=== PATIENT | female | born 1990 | race Caucasian/White ===

== ENCOUNTER 2016-06-30 05:44 | Day surgery (SDC) | payer OTHER ==
[~2016-06-30] VITALS: Ht 160 cm; Wt 60.9 kg
[2016-06-30 06:34] VITALS: Ht 160 cm; Wt 60.9 kg
[2016-06-30] MEDS ORDERED: FIBER SUPPLEMENT (06:34)
[2016-06-30 07:06] VITALS: BP 128/70; PULSE 67; RESP 18
[2016-06-30] MEDS ORDERED: FENTAnyl 50 MCG/ML VIAL ONE (07:51)
[2016-06-30] MEDS ORDERED: MIDAZOLAM 1 MG/ML 2 ML INJ ONE ×2 (07:51)
[2016-06-30 08:31] VITALS: BP 99/56; PULSE 72; RESP 18
--- NOTE | 2016-06-30 11:58 | GILP ---
DATE OF PROCEDURE: 06/30/2016 NAME OF PROCEDURES: Esophagogastroduodenoscopy and biopsy. SURGEON: Donovan Mccord MD PREOPERATIVE DIAGNOSIS: Abdominal pain. POSTOPERATIVE DIAGNOSES: 1. Gastritis with erosions. 2. Gastric mucosal biopsies were taken for Helicobacter pylori test. INDICATION FOR THE PROCEDURE: Ms. Ana Soliman is a 25-year-old female patient who had upper ab dominal pain, not responding to therapy. Patient was scheduled for endoscopic examination for [facility] evaluation. The procedure and possible complications are well explained to the patient, she understood and conse nted to the procedure. DESCRIPTION OF PROCEDURE: Under the influence of fentanyl and Versed, the gastroscope was carefully introduced into the esophagus and under direct vision, it was advanced to the stomach and through t he pylorus into the duodenal bulb and descending duodenum. FINDINGS: ESOPHAGUS: The mucosa was normal. STOMACH: The patient had gastritis. Gastric mucosal biopsies were taken for H. pylori test. DUODENUM: Normal. She tolerated the procedure very well and there was no complication from the procedure. At the end of the procedure, she was awake with stable vital signs and she was discharged home to the care of [facility]. IMPRESSION: 1. Gastritis with erosions. 2. Gastric mucosal biopsies were taken for Helicobacter pylori test. PLAN: 1. Omeprazole 40 mg p.o. q.a.m. 2. Await H. pylori test report. Dictated By: DONOVAN MENDOZA/GENARO Conf#: [id number] DID#: [id number] CC: DONOVAN MCCORD MD;*EndCC*
== END 2016-06-30 11:32 | disposition home or self-care (01) ==
LOC: GIL 05:44
PROVIDERS: ATTEND Internal Medicine Gastroenterology
DX: K29.60 Other gastritis without bleeding (principal)
CPT/HCPCS: 43239; 84703; 87081; J2250; J3010; Z7610

== ENCOUNTER 2016-08-15 06:02 | Day surgery (SDC) | payer OTHER ==
[~2016-08-15] VITALS: Ht 162.6 cm; Wt 61.4 kg
[2016-08-15] VITALS (11 sets, daily range): BP systolic 110–156; BP diastolic 50–80; PULSE 66–103; RESP 16–23; Ht 162.6 cm; Wt 61.4 kg
[~2016-08-15 06:02] MED LIST: CEFAZOLIN 2 GM/50 ML (PMX) 50 ML IVPB SCH; FIBER SUPPLEMENT; SOD CHLORIDE 0.9% 1,000 ML IV SCH
[2016-08-15] MEDS ORDERED: BUPIVACAINE 0.25%/EPI (SDV) 30 ML INJ ONE (06:49)
[2016-08-15 07:06] LABS: ADD SCAN DIFF NO
[2016-08-15] MEDS ORDERED: OMEP40CA6 PO (07:14)
[2016-08-15 07:20] LABS: BASOPHILS % 0.3 % (0.0-2.0); EOSINOPHILS # 0.1 10^3/ul (0.0-0.5); EOSINOPHILS % 1.1 % (0.0-7.0); HEMATOCRIT 41.5 % (37.0-47.0); LYMPHOCYTES # 1.5 10^3/ul (0.8-2.9); LYMPHOCYTES % 20.9 % (15.0-51.0); MEAN CORPUSCULAR HEMOGLOBIN 34.3 pg (29.0-33.0); MEAN CORPUSCULAR HGB CONC 33.7 g/dl (32.0-37.0); MEAN CORPUSCULAR VOLUME 101.7 fl (82.0-101.0); MEAN PLATELET VOLUME 9.9 fl (7.4-10.4); MONOCYTE # 0.5 10^3/ul (0.3-0.9); MONOCYTES % 7.1 % (0.0-11.0); NEUTROPHIL # 4.9 10^3/ul (1.6-7.5); NEUTROPHILS % 70.5 % (39.0-77.0); PLATELET COUNT 232 10^3/UL (140-415); RED BLOOD COUNT 4.08 10^6/ul (4.20-5.40); RED CELL DISTRIBUTION WIDTH 12.7 % (11.5-14.5)
[2016-08-15 07:22] LABS: ALBUMIN 4.3 g/dl (3.3-4.9)
[2016-08-15 07:25] LABS: ALBUMIN/GLOBULIN RATIO 1.43; BILIRUBIN,INDIRECT 1.3 mg/dl (0-1.1); BILIRUBIN,TOTAL 1.3 mg/dl (0.2-1.3); TOTAL PROTEIN 7.3 g/dl (6.1-8.1)
[2016-08-15 07:26] LABS: CALCIUM 8.8 mg/dl (8.4-10.2); CREATININE 0.61 mg/dl (0.44-1.00); POTASSIUM 3.8 mmol/L (3.5-5.1)
[2016-08-15 07:27] LABS: INR 1.02; PROTIME 13.4 Sec (12.2-14.2)
[2016-08-15 07:28] LABS: PARTIAL THROMBOPLASTIN TIME 27.8 Sec (25.0-35.0)
[2016-08-15] MEDS ORDERED: MIDAZOLAM 1 MG/ML 2 ML INJ ONE (07:39)
[2016-08-15] MEDS ORDERED: PROPOFOL 20 ML ONE (07:39)
[2016-08-15] MEDS ORDERED: LIDOCAINE 1% (MDV) 20 ML INJ ONE (07:40)
[2016-08-15] MEDS ORDERED: ONDANSETRON 4 MG INJ ONE (07:48)
[2016-08-15] MEDS ORDERED: DEXAMETHASONE 4 MG/ML 1 ML INJ ONE (07:48)
[2016-08-15] MEDS ORDERED: FAMOTIDINE 20 MG INJ ONE (07:49)
[2016-08-15] MEDS ORDERED: CEFAZOLIN 1 GM INJ ONE (07:51)
[2016-08-15] MEDS ORDERED: ACETAMINOPHEN 1000MG/100ML IV 100 ML ONE (07:51)
[2016-08-15] MEDS ORDERED: FENTAnyl 50 MCG/ML VIAL ONE (07:53)
[2016-08-15] MEDS ORDERED: KETOROLAC 30 MG INJ ONE (08:16)
[2016-08-15] MEDS ORDERED: DIPHENHYDRAMINE 50 MG INJ IV PRN (08:30)
[2016-08-15] MEDS ORDERED: HYDROmorphONE (0.2 MG/ML) 10ML SYG IV PRN ×2 (08:30)
[2016-08-15] MEDS ORDERED: PROCHLORPERAZINE 10 MG INJ IV PRN (08:30)
[2016-08-15] MEDS ORDERED: MEPERIDINE 25 MG INJ IV PRN (08:30)
--- NOTE | 2016-08-15 08:41 | OPR ---
Date/Time of Note Date/Time of Note DATE: 08/15/16 TIME: 08:37 Operative Report Procedure Date: August 15, 2016 Preoperative Diagnosis Right breast mass Postoperative Diagnosis Right breast mass Operation Performed Excisional biopsy right breast mass Surgeon: SONY PAINTER MD Anesthesia: general Anesthesiologist: MICHEL CANUT DO Estimated Blood Loss: minimal Specimens Right breast mass Complications: None Pt Condition Post Procedure: stable Disposition: PACU Indications The patient is a 26-year-old female who presented to the office complaining of a painful right breast mass. Patient had a ultrasound done which confirmed presence of the mass. 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 Due to patient's discomfort excisional biopsy was recommended for symptom relief and definitive pathological diagnosis. All risks and benefits of the procedure including, but not limited to: Wound infection, excessive bleeding, postoperative seroma/hematoma formation, numbness which may be temporary versus permanent, mass recurrence, etc. were all explained to the patient in full detail. She fully understood and wished to proceed with the procedure. Informed consent was obtained. Operative\Procedure Findings Biopsy clip present within the specimen Procedure Description Patient was brought to the operating room and placed supine on the operating table. Bilateral sequential compression devices were placed on both lower extremities. A dose of broad-spectrum perioperative intravenous antibiotics was given. Location of the mass was preoperatively marked in the holding area and confirmed with the patient. Following the induction of smooth general LMA anesthesia the patient's right breast and chest wall were prepped and draped in standard surgical fashion. The mass was located at approximately 10 o'clock position of the right upper outer quadrant. 0.25% Marcaine with epinephrine local anesthesia was given in the area of the mass. A curvilinear incision was made over the mass using a 15 blade scalpel. Incision was carried down through the skin into the subcutaneous tissues using Bovie electrocautery. Flaps were raised. The mass was dissected circumferentially and transected at its base. Marking suture was used to stef the superior and medial aspects. Intraoperative pathological consultation was requested and the pathologist confirmed the presence of the biopsy clip within the specimen. Hemostasis was then inspected for and noted to be total. The cavity was irrigated with warm normal saline and the irrigant returned clear. For the local anesthesia was then injected around the wound cavity and incision site. Incision was then closed in layers using interrupted 3-0 Vicryl suture for the dermal layer. The skin was reapproximated using a running 4-0 Monocryl subcuticular suture. Incision was cleaned and Dermabond was applied as well as a sports bra. The patient was awoken from anesthesia and transported to the recovery room in stable condition. All counts were correct at the end of the case 2. SONY PAINTER MD August 15, 2016 08:41
[2016-08-15] MEDS ORDERED: KETOROLAC 30 MG INJ IV PRN (09:00)
[2016-08-15] MEDS ORDERED: ONDANSETRON 4 MG INJ IV PRN (09:00)
[2016-08-15] MEDS ORDERED: IBUPROFEN 600 MG TAB PO PRN (09:00)
== END 2016-08-15 10:52 | disposition home or self-care (01) ==
LOC: SDS 06:02
PROVIDERS: ATTEND Surgery
DX: D24.1 Benign neoplasm of right breast (principal)
CPT/HCPCS: 19120; 80053; 84703; 85025; 85610; 85730; 88307; J0690; J1100; J2250; J2405; J3010; Z7512; Z7610; J0131; J1885